=== PATIENT | female | born 2000 ===

== ENCOUNTER → 2025-08-25 09:49 | Outpatient (REF) | payer BC, SELFPAY ==
[2025-08-25 12:10] LABS: Hematocrit 39.8 % (37.0-47.0); Hemoglobin 13.7 g/dL (12.0-16.0); Mean Corp Hgb Conc. 34.4 g/dL (33.0-37.0); Mean Corpuscular Volume 87.7 fL (81.0-99.0); Nucleated Red Blood Cells % 0 %; Platelet Count 229 10^3/uL (130-400); Red Cell Dist. Width 12.8 % (11.5-14.5)
[2025-08-25 12:58] LABS: ALT (SGPT) 24 U/L (0-35); AST (SGOT) 27 U/L (14-36); Albumin 4.5 g/dl (3.5-5.0); Alkaline Phosphatase 72 U/L (38-126); Blood Urea Nitrogen 13 mg/dl (7-17); Calcium 9.3 mg/dl (8.4-10.2); Carbon Dioxide 27 mmol/L (22-30); Chloride 104 mmol/L (98-107); Glucose 69 mg/dl (70-99); HDL Cholesterol 67 mg/dl; Iron 101 ug/dl (37-170); LDL Cholesterol, Calculated 105 mg/dl; Potassium 4.6 mmol/L (3.5-5.1); Sodium 135 mmol/L (135-145); Total Protein 7.8 g/dl (6.3-8.2); Very Low Density Lipoprotein 11 mg/dl (0-30); eGFR > 60.00
[2025-08-25 13:07] LABS: TSH 0.81 uIU/ml (0.47-4.68)
[2025-08-25 13:08] LABS: Total Iron Binding Capacity 402 ug/dl (265-497)
[2025-08-25 13:12] LABS: Ferritin 17.2 ng/ml (6.24-137)
== END ==
LOC: REG 09:49
PROVIDERS: ATTENDING PHYSICIAN Student in an Organized Health Care Education/Training Program
DX: Z00.00 Encounter for general adult medical examination without abnormal findings (principal); R53.82 Chronic fatigue, unspecified
CPT/HCPCS: 36415; 80053; 80061; 82728; 83540; 83550; 84443; 85025